=== PATIENT | male | born 1960 | race African-American/Black ===

== ENCOUNTER 2019-05-18 12:17 | Inpatient (IN) | payer SELFPAY ==
[~2019-05-18] VITALS: Ht 172.7 cm; Wt 90.3 kg
[2019-05-18] MEDS ORDERED: LORAZEPAM 2MG/ML CPJ ONE ×2 (13:12→13:25)
[2019-05-18] MEDS ORDERED: LORAZEPAM 2MG/ML CPJ IV ONE (13:30)
[2019-05-18] MEDS ORDERED: LEVETIRACETAM 500MG PREMIX 100 ML IV ONE ×2 (13:30)
[2019-05-18 13:57] LABS: BASOPHILS % 0.2 % (0.0-2.0); HEMATOCRIT. 44.8 % (42.0-52.0); LYMPHOCYTES % 11.2 % (20.0-50.0); MEAN CORPUSCULAR HEMOGLOBIN 28.8 pg (28.0-32.0); MEAN CORPUSCULAR VOLUME 85.9 fL (80.0-94.0); MEAN PLATELET VOLUME 7.2 fl (7.4-10.4); MONOCYTES % 6.7 % (2.0-8.0); NEUTROPHILS % 81.9 % (40.0-76.0); PLATELET 321 x1000/uL (130-400); RED BLOOD CELL COUNT 5.21 mill/uL (4.7-6.1); RED CELL DISTRIBUTION WIDTH 14.1 % (11.6-14.6)
[2019-05-18 14:02] LABS: CHLORIDE 111 mEq/L (98-107)
[2019-05-18 14:06] LABS: ETHANOL BLOOD < 10 mg/dL
[2019-05-18 22:00] VITALS: BP 126/84
[2019-05-18] MEDS ORDERED: CLONIDINE 0.1MG TABLET PO PRN (22:15)
[2019-05-18] MEDS ORDERED: IPRATROPIUM/ALBUTEROL 0.5-3(2.5)MG/3ML NEB NEB PRN (22:15)
[2019-05-18] MEDS ORDERED: ACETAMINOPHEN 325MG TABLET PO PRN (22:15)
[2019-05-18] MEDS ORDERED: ONDANSETRON HCL 4MG/2ML INJ IV PRN (22:15)
[2019-05-18] MEDS ORDERED: MAGNESIUM/ALUMINUM HYDROXIDE/SIMETHICONE 30ML UDC PO PRN (22:15)
[2019-05-18] MEDS ORDERED: DOCUSATE SODIUM 100MG CAPSULE PO PRN (22:15)
[2019-05-18] MEDS ORDERED: LORAZEPAM 2MG/ML CPJ IM PRN (22:30)
[2019-05-18] MEDS ORDERED: LEVETIRACETAM 500MG PREMIX 100 ML IV SCH (23:30)
[2019-05-18 23:59] LABS: CHLORIDE 111 mEq/L (98-107)
[2019-05-19] MEDS ORDERED: BUSP10TA4 MT (00:07)
[2019-05-19 06:48] LABS: LDL CHOLESTEROL 179 mg/dL (5-100)
[2019-05-19 06:49] LABS: CREATINE KINASE 521 IU/L (39-308); HDL CHOLESTEROL 39 mg/dL (40-59)
[2019-05-19 06:51] LABS: BASOPHILS % 0.4 % (0.0-2.0); CREATINE KINASE MB FRACTION 2.6 ng/mL (0.5-3.6); EOSINOPHILS % 0.4 % (0.0-5.0); HEMATOCRIT. 43.6 % (42.0-52.0); HEMOGLOBIN. 14.3 g/dL (14.0-18.0); LYMPHOCYTES % 26.3 % (20.0-50.0); MEAN CORPUSCULAR HEMOGLOBIN 28.4 pg (28.0-32.0); MEAN CORPUSCULAR VOLUME 86.7 fL (80.0-94.0); MEAN PLATELET VOLUME 7.4 fl (7.4-10.4); MONOCYTES % 10.2 % (2.0-8.0); NEUTROPHILS % 62.7 % (40.0-76.0); PLATELET 333 x1000/uL (130-400); RED BLOOD CELL COUNT 5.03 mill/uL (4.7-6.1); RED CELL DISTRIBUTION WIDTH 14.6 % (11.6-14.6)
[2019-05-19] MEDS ORDERED: ENOXAPARIN 30MG/0.3ML SYR SUBCUT SCH (09:00)
[2019-05-19] MEDS ORDERED: LEVETIRACETAM 500MG TABLET PO SCH (09:40)
[2019-05-19 10:00] VITALS: BP 138/88
[2019-05-19] MEDS ORDERED: BUSPIRONE HCL 10MG TABLET PO SCH (11:00)
[2019-05-19 12:00] VITALS: BP 133/78
[2019-05-19 12:57] LABS: FOLIC ACID (FOLATE) SERUM > 20.00 ng/mL (>5.38)
[2019-05-19 13:00] LABS: VITAMIN B12 SERUM 339 pg/mL (211-911)
== END 2019-05-19 18:34 | disposition left against medical advice (07) | DRG 53 ==
LOC: ER 13:36 → 5EST 17:18 → UNDOADMIN 17:18 → EDBD 17:18 → EDBEDREQSVC 17:27 → ENRESERV 19:03
PROVIDERS: ADMIT Internal Medicine; ATTEND Internal Medicine
DX: G40.901 Epilepsy, unspecified, not intractable, with status epilepticus (principal); G93.89 Other specified disorders of brain; M62.82 Rhabdomyolysis; D72.821 Monocytosis (symptomatic); E78.1 Pure hyperglyceridemia; E78.5 Hyperlipidemia, unspecified; Z79.899 Other long term (current) drug therapy
CPT/HCPCS: 36415; 80048; 80053; 80061; 80320; 82140; 82550; 82553; 82607; 82746; 82962; 83036; 83735; 84443; 84484; 85025; 93970; 96365; 99285; J1650; J1953; J2060; G0480

== ENCOUNTER 2020-03-19 16:39 | Emergency (ER) | payer MEDICAID ==
[~2020-03-19] VITALS: Ht 177.8 cm; Wt 77.0 kg
[~2020-03-19 16:39] MED LIST: BUSP10TA4 MT
[2020-03-19] MEDS ORDERED: LEVETIRACETAM 500MG PREMIX 100 ML IV ONE (18:15)
[2020-03-19 18:34] LABS: BASOPHILS % 0.7 % (0.0-2.0); EOSINOPHILS % 0.2 % (0.0-5.0); HEMATOCRIT. 41.1 % (42.0-52.0); HEMOGLOBIN. 13.8 g/dL (14.0-18.0); LYMPHOCYTES % 9.4 % (20.0-50.0); MEAN CORPUSCULAR HEMOGLOBIN 30.3 pg (28.0-32.0); MEAN CORPUSCULAR VOLUME 90.2 fL (80.0-94.0); MEAN PLATELET VOLUME 7.4 fl (7.4-10.4); MONOCYTES % 8.2 % (2.0-8.0); NEUTROPHILS % 81.5 % (40.0-76.0); PLATELET 285 x1000/uL (130-400); RED BLOOD CELL COUNT 4.56 mill/uL (4.7-6.1); RED CELL DISTRIBUTION WIDTH 14.6 % (11.6-14.6)
[2020-03-19 18:41] LABS: CHLORIDE 105 mEq/L (98-107)
[2020-03-19 20:00] VITALS: BP 112/65
== END 2020-03-19 20:33 | disposition home or self-care (01) ==
LOC: ER 16:39
DX: R56.9 Unspecified convulsions (principal)
CPT/HCPCS: 36415; 71045; 80053; 85025; 93005; 99285; J1953

== ENCOUNTER 2021-02-12 20:22 | Emergency (ER) | payer MEDICAID ==
[~2021-02-12] VITALS: Ht 180.3 cm; Wt 90.0 kg
[2021-02-12] MEDS ORDERED: LEVETIRACETAM 1000MG PREMIX 100 ML IV ONE (21:00)
[2021-02-12] MEDS ORDERED: SODIUM CHLORIDE 0.9% 1,000 ML IV ONE (21:00)
[2021-02-12 21:36] LABS: HEMATOCRIT. 43.3 % (42.0-52.0); HEMOGLOBIN. 14.6 g/dL (14.0-18.0); MEAN CORPUSCULAR VOLUME 91.9 fL (80.0-94.0); PLATELET 142 x1000/uL (130-400); RED CELL DISTRIBUTION WIDTH 14.7 % (11.6-14.6)
[2021-02-12 21:40] LABS: CHLORIDE 93 mEq/L (98-107)
[2021-02-12 21:44] LABS: ETHANOL BLOOD < 10 mg/dL
[2021-02-12 22:01] LABS: CREATINE KINASE 1327 IU/L (39-308)
[2021-02-12 22:24] LABS: PLATELET ESTIMATE NORMAL
[2021-02-13] MEDS ORDERED: SODIUM CHLORIDE 0.9% 1,000 ML IV ONE (01:00)
[2021-02-13] MEDS ORDERED: LEVE500T98 MT (03:07)
[2021-02-13 03:15] VITALS: BP 186/92
== END 2021-02-13 03:50 | disposition home or self-care (01) ==
LOC: ER 20:22
DX: R56.9 Unspecified convulsions (principal); G93.41 Metabolic encephalopathy; I10 Essential (primary) hypertension
CPT/HCPCS: 36415; 70450; 80053; 80320; 82550; 82962; 85025; 93005; 96361; 96365; 99285; J1953; J7030; G0480

== ENCOUNTER 2021-03-01 10:31 | Emergency (ER) | payer MEDICAID ==
[~2021-03-01] VITALS: Ht 165.1 cm; Wt 89.0 kg
[~2021-03-01 10:31] MED LIST changes: +LEVE500T98 MT
[2021-03-01] MEDS ORDERED: LEVETIRACETAM 500MG PREMIX 100 ML IV ONE (11:30)
[2021-03-01 11:44] VITALS: BP 164/96
[2021-03-01 11:59] LABS: BASOPHILS % 0.6 % (0.0-2.0); HEMATOCRIT. 38.9 % (42.0-52.0); HEMOGLOBIN. 13.1 g/dL (14.0-18.0); LYMPHOCYTES % 10.5 % (20.0-50.0); MEAN CORPUSCULAR HEMOGLOBIN 30.5 pg (28.0-32.0); MEAN CORPUSCULAR VOLUME 90.8 fL (80.0-94.0); NEUTROPHILS % 79.9 % (40.0-76.0); PLATELET 241 x1000/uL (130-400); RED BLOOD CELL COUNT 4.28 mill/uL (4.7-6.1); RED CELL DISTRIBUTION WIDTH 14.9 % (11.6-14.6)
[2021-03-01 12:08] LABS: CHLORIDE 99 mEq/L (98-107)
[2021-03-01] MEDS ORDERED: AMLO10TA4 MT (12:50)
[2021-03-01] MEDS ORDERED: BUSP10TA4 PO (12:50)
[2021-03-01] MEDS ORDERED: KEPP500 MT (12:50)
== END 2021-03-01 15:00 | disposition home or self-care (01) ==
LOC: ER 10:31
DX: G40.909 Epilepsy, unspecified, not intractable, without status epilepticus (principal); I10 Essential (primary) hypertension; Z76.0 Encounter for issue of repeat prescription; Z79.899 Other long term (current) drug therapy; Z59.00 Homelessness unspecified
CPT/HCPCS: 36415; 80053; 85025; 93005; 96365; 99284; J1953

== ENCOUNTER 2021-03-30 20:33 | Emergency (ER) | payer MEDICAID ==
[~2021-03-30] VITALS: Ht 170.2 cm; Wt 82.0 kg
[~2021-03-30 20:33] MED LIST changes: +AMLO10TA4 MT; +BUSP10TA4 PO; +KEPP500 MT
[2021-03-30 20:35] VITALS: BP 158/83
[2021-03-30] MEDS ORDERED: LEVETIRACETAM 500MG PREMIX 100 ML IV ONE (21:45)
[2021-03-30 23:56] LABS: BASOPHILS % 1.1 % (0.0-2.0); EOSINOPHILS % 0.2 % (0.0-5.0); HEMATOCRIT. 38.5 % (42.0-52.0); LYMPHOCYTES % 39.1 % (20.0-50.0); MEAN CORPUSCULAR HEMOGLOBIN 30.7 pg (28.0-32.0); MEAN CORPUSCULAR VOLUME 90.6 fL (80.0-94.0); MEAN PLATELET VOLUME 6.4 fl (7.4-10.4); NEUTROPHILS % 49.6 % (40.0-76.0); PLATELET 317 x1000/uL (130-400); RED BLOOD CELL COUNT 4.25 mill/uL (4.7-6.1); RED CELL DISTRIBUTION WIDTH 14.4 % (11.6-14.6)
[2021-03-31 00:01] LABS: CHLORIDE 104 mEq/L (98-107)
[2021-03-31 00:39] LABS: ETHANOL BLOOD 370 mg/dL
[2021-03-31 03:14] LABS: CLARITY URINE CLEAR (CLEAR); COLOR URINE YELLOW (YELLOW); KETONES URINE TRACE (NEGATIVE); LEUKOCYTE ESTERASE URINE NEGATIVE (NEGATIVE); NITRITE URINE NEGATIVE (NEGATIVE); OCCULT BLOOD URINE NEGATIVE (NEGATIVE); PH URINE 7.5 (4.5-8.0); PROTEIN URINE TRACE (NEGATIVE); SPECIFIC GRAVITY URINE 1.021 (1.005-1.030)
[2021-03-31 03:28] LABS: *AMPHETAMINES SCREEN URINE NEGATIVE (NEGATIVE); *BARBITURATES SCREEN URINE NEGATIVE (NEGATIVE); *BENZODIAZEPINES SCREEN URINE NEGATIVE (NEGATIVE); *COCAINE SCREEN URINE NEGATIVE (NEGATIVE); METHADONE URINE SCREEN NEGATIVE (NEGATIVE); OPIATES URINE SCREEN NEGATIVE (NEGATIVE)
[2021-03-31 03:29] LABS: CANNABINOID URINE SCREEN NEGATIVE (NEGATIVE); PHENCYCLIDINE URINE SCREEN NEGATIVE (NEGATIVE)
== END 2021-03-31 07:10 | disposition home or self-care (01) ==
LOC: ER 20:33
DX: G40.909 Epilepsy, unspecified, not intractable, without status epilepticus (principal); F10.129 Alcohol abuse with intoxication, unspecified; R42 Dizziness and giddiness; I10 Essential (primary) hypertension; Y90.8 Blood alcohol level of 240 mg/100 ml or more; R26.2 Difficulty in walking, not elsewhere classified; Z59.02 Unsheltered homelessness
CPT/HCPCS: 36415; 80053; 80305; 80320; 81003; 82962; 85025; 93005; 96365; 96366; 99284; J1953; G0480

== ENCOUNTER 2021-05-02 18:09 | Emergency (ER) | payer MEDICAID ==
[~2021-05-02] VITALS: Ht 182.9 cm; Wt 81.0 kg
[2021-05-02] MEDS ORDERED: LEVETIRACETAM 500MG TABLET PO ONE (20:30)
[2021-05-02 21:34] LABS: BASOPHILS % 0.7 % (0.0-2.0); EOSINOPHILS % 0.5 % (0.0-5.0); HEMATOCRIT. 36.7 % (42.0-52.0); HEMOGLOBIN. 12.5 g/dL (14.0-18.0); LYMPHOCYTES % 44.1 % (20.0-50.0); MEAN CORPUSCULAR HEMOGLOBIN 30.7 pg (28.0-32.0); MEAN CORPUSCULAR VOLUME 89.8 fL (80.0-94.0); MEAN PLATELET VOLUME 6.4 fl (7.4-10.4); MONOCYTES % 7.5 % (2.0-8.0); NEUTROPHILS % 47.2 % (40.0-76.0); PLATELET 262 x1000/uL (130-400); RED BLOOD CELL COUNT 4.08 mill/uL (4.7-6.1); RED CELL DISTRIBUTION WIDTH 13.9 % (11.6-14.6)
[2021-05-02 21:42] LABS: CHLORIDE 100 mEq/L (98-107)
[2021-05-02] MEDS ORDERED: AMLO10TA4 MT (21:57)
[2021-05-02] MEDS ORDERED: BUSP10TA4 PO (21:57)
[2021-05-02] MEDS ORDERED: LEVE1000 MT (21:57)
[2021-05-02 23:00] VITALS: BP 152/78
== END 2021-05-02 23:20 | disposition home or self-care (01) ==
LOC: ER 18:09
DX: G40.909 Epilepsy, unspecified, not intractable, without status epilepticus (principal); R53.1 Weakness; I10 Essential (primary) hypertension
CPT/HCPCS: 36415; 80048; 85025; 93005; 99284

== ENCOUNTER 2021-06-04 15:09 | Emergency (ER) | payer MEDICAID ==
[~2021-06-04] VITALS: Ht 170.2 cm; Wt 80.0 kg
[~2021-06-04 15:09] MED LIST changes: +LEVE1000 MT
[2021-06-04] MEDS ORDERED: LEVETIRACETAM 1000MG PREMIX 100 ML IV ONE (16:15)
[2021-06-04 16:57] LABS: BASOPHILS % 0.8 % (0.0-2.0); EOSINOPHILS % 0.4 % (0.0-5.0); HEMATOCRIT. 40.2 % (42.0-52.0); HEMOGLOBIN. 13.6 g/dL (14.0-18.0); LYMPHOCYTES % 38.9 % (20.0-50.0); MEAN CORPUSCULAR VOLUME 88.9 fL (80.0-94.0); MONOCYTES % 6.7 % (2.0-8.0); NEUTROPHILS % 53.2 % (40.0-76.0); PLATELET 260 x1000/uL (130-400); RED BLOOD CELL COUNT 4.52 mill/uL (4.7-6.1); RED CELL DISTRIBUTION WIDTH 13.8 % (11.6-14.6)
[2021-06-04 17:05] LABS: CHLORIDE 105 mEq/L (98-107)
[2021-06-04 17:08] LABS: ETHANOL BLOOD 150 mg/dL
[2021-06-04 18:15] LABS: CLARITY URINE CLEAR (CLEAR); COLOR URINE YELLOW (YELLOW); KETONES URINE TRACE (NEGATIVE); LEUKOCYTE ESTERASE URINE NEGATIVE (NEGATIVE); NITRITE URINE NEGATIVE (NEGATIVE); OCCULT BLOOD URINE NEGATIVE (NEGATIVE); PH URINE 6.5 (4.5-8.0); PROTEIN URINE NEGATIVE (NEGATIVE); SPECIFIC GRAVITY URINE 1.017 (1.005-1.030)
[2021-06-04] MEDS ORDERED: LEVE1000 MT (19:14)
[2021-06-04 22:00] VITALS: BP 150/80
== END 2021-06-04 22:45 | disposition home or self-care (01) ==
LOC: ER 15:09
DX: G40.909 Epilepsy, unspecified, not intractable, without status epilepticus (principal); R53.1 Weakness; Z91.14 Patient's other noncompliance with medication regimen; G31.9 Degenerative disease of nervous system, unspecified
CPT/HCPCS: 36415; 70450; 71045; 80053; 80320; 81003; 82962; 83605; 84484; 85025; 96365; 99285; J1953; G0480